=== PATIENT | male | born 2000 | race Caucasian/White ===

== ENCOUNTER 2020-05-27 12:55 | Inpatient (IN) | payer OTHER, SELFPAY ==
[2020-05-27] VITALS (15 sets, daily range): BP systolic 109–129; BP diastolic 52–74; PULSE 115–136; RESP 17–124; TEMP 37.2–37.6; O2SAT 87–98; BMI 26.2; BMI 25.0
--- NOTE | 2020-05-27 | ECG_ITS ---
Test Reason : establish baseline for sinus tachycardia Blood Pressure : / mmHG Vent. Rate : 116 BPM Atrial Rate : 116 BPM P-R Int : 136 ms QRS Dur : 070 ms QT Int : 282 ms P-R-T Axes : 073 -77 013 degrees QTc Int : 391 ms Sinus tachycardia Low voltage QRS Left axis deviation Abnormal ECG When compared with ECG of 28-FEB-2020 17:15, Heart rate has increased Referred By: Geovanny De Oliveira Electronically Signed By:SYL ESCALERA MD
--- NOTE | 2020-05-27 13:10 | XR_ITS ---
EXAMINATION: XR CHEST CLINICAL INFORMATION: Shortness of breath COMPARISON: 04/06/2020 TECHNIQUE: Portable AP upright view of the chest was obtained. FINDINGS: Cardiac and mediastinal silhouettes are normal in appearance. The lungs are clear without consolidation or atelectasis seen. No acute osseous abnormality. XR/XR chest 1V IMPRESSION: The lungs are clear.
--- NOTE | 2020-05-27 13:13 | ED_ITS ---
HPI - SOB/Dyspnea General Chief Complaint: Dyspnea Stated Complaint: SHORTNESS OF BREATH Time Seen by Provider: 05/27/20 13:10 Source: patient and EMS Mode of arrival: EMS Limitations: no limitations History of Present Illness HPI Narrative: 19-year-old male with history of asthma presented with acute asthma exacerbation, patient stated that it is his typical symptoms of wheezing, difficulty breathing, productive cough. Patient has been taking his home medication but with worsening of his asthma, patient called 911 and brought him to the hospital patient was given magnesium /Solu-Medrol/ 2.5 of albuterol in route with slight improvement, in the emergency department patient seen with dyspnea, tachypnea, hypoxic on room air 87% improved with 3 L of oxygen went to 93%. MD elicited complaint: shortness of breath and cough Pertinent past history: asthma Onset (ago): day(s) (1) Timing: constant Severity: moderate Exacerbating factors: nothing Relieving factors: nothing Known history of: asthma Associated symptoms: denies other symptoms Treatment prior to arrival: oxygen and bronchodilator Related Data Home Medications Medication Instructions Recorded Confirmed Ventolin HFA 90 mcg INHALATION QID PRN 05/27/20 05/27/20 albuterol 8.5 mcg INHALATION Q4-5H PRN 05/27/20 05/27/20 Allergies Allergy/AdvReac Type Severity Reaction Status Date / Time No Known Allergies Allergy Unverified 04/12/20 19:52 [No Known Allergies*] Review of Systems Review of Systems: All other systems are reviewed and are negative Constitutional: Reports as per HPI and Reports no additional constitutional complaints Eyes: Reports as per HPI and Reports no additional eye complaints Reports system reviewed and no additional complaints, except as documented Cardiovascular: Reports as per HPI and Reports no additional cardiovascular complaints Respiratory: Reports as per HPI and Reports no additional respiratory complaints Gastrointestinal: Reports as per HPI and Reports no additional gastrointestinal complaints Genitourinary: Reports no additional female genitourinary complaints Musculoskeletal: Reports no additional musculoskeletal complaints Skin/Breast: Reports system reviewed and no additional complaints, except as docu Psychiatric: Reports no additional psychiatric complaints Endocrine: Reports no additional endocrine complaints Hematologic/Lymphatic: Reports no additional hematologic/lymphatic complaints Allergic/Immunologic: Reports no additional allergic/immunologic complaints Reports system reviewed and no additional complaints, except as documented and Reports Abnormal speech present [facility] Past Medical History Medical History Asthma Social History Social History Alcohol intake: never Smoking Status: Never smoker Use of substances other than those prescribed or required for medical reasons: No Advance Directives: No Advance Directives Information Provided: No Physical Exam Vital Signs: Vital Signs: Vital Signs Temp Pulse Resp BP Pulse Ox 05/27/20 14:07 99.3 F 129 H 22 H 116/67 93 05/27/20 13:02 99.1 F 115 H 24 H 120/74 87 L Body Mass Index 25.0 vital signs have been reviewed as normal and appeared to be correct. Blood pressure normal. Tachycardic ( patient received albuterol in route ), tachypneic. Temperature normal. Oxygen saturation is low. Appearance: Alert. Oriented X3. No acute distress. Head: Normal external exam. Normocephalic. Atraumatic. No Patiño signs noted. No raccoon eyes noted Eyes: PERRLA. EOMI. Conjunctiva and sclera normal. Eyelids normal. ENT: EAC normal. TM's Normal. Pharynx normal. Uvula midline. Moist mucous membranes. No trismus noted. No drooling noted. No muffled voice noted. Neck: Normal inspection. Neck supple. FROM. No adenopathy. Thyroid Normal. No meningeal signs. No neck mass noted. CVS: Normal heart rate and rhythm. Heart sound normal. No murmurs noted. Pulses normal throughout. Respiratory: mild respiratory distress, prolonged expiration. , expiratory wheezing. Painless inspiration. Breath sounds are diminished bilaterally. No rales/rhonchi noted. Chest nontender. No accessory muscle usage noted or decreased air movement noted. Abdomen: Soft and nontender. Bowel sounds normal in all 4 quadrants. No distention noted. No organomegaly noted. No visible injury noted. Back: No CVA tenderness. Full range of motion noted. Skin: Skin warm and dry. Normal skin color. Normal skin turgor. No rashes/lesions/lacerations noted. Extremities: No lower extremity edema. Extremities exhibit normal range of motion. Extremities nontender. Neuro: Oriented X 3. No motor deficit. No sensory deficit. Reflexes normal. Course Course Course Narrative: 19-year-old male with history of asthma presents with acute asthma exacerbation patient received multiple medication by EMS with partial improvement. Patient had a history of hospitalization several times for asthma exacerbation will consider repeat Solu-Medrol / magnesium / continuous bronchodilator treatment /will reassess /Check for pneumonia / check for COVID testing. Reevaluation(s) Reevaluation #1: patient is showing some improvement, still expiratory wheezing with prolonged expiration, satting 93% on 3 L of oxygen. Will consider more bronchodilator and reassess. Time: 14:02 Reevaluation #2: Patient still working breathing, mild respiratory distress, satting 92% with 3 L of oxygen still tachypneic and tachycardic. Will consider epinephrine subcu at this point and will consult ICU admission. Time: 14:59 Reevaluation #3: epinephrine was just given exam still unchanged may be minimal subjective improvement, await for ICU consultation will keep re-evaluating. Time: 15:31 MDM - SOB/Dyspnea MDM Narrative Medical decision making narrative: Assessment and plan. 19-year-old male with history of asthma presented with status asthmaticus (not responding to multiple doses of bronchodilator / magnesium / Solu-Medrol ) chest x-ray is not suggesting pneumonia or need of antibiotic, patient received 1 dose of epinephrine in the emergency department. Will admit to ICU for close airway monitoring. Lab Data Attestation: I reviewed the patient's lab results. Result diagrams: 05/27/20 13:37 05/27/20 13:37 Labs: Lab Results 05/27/20 05/27/20 05/27/20 Range/Units 13:37 13:37 13:37 WBC 12.4 H (4.8-10.8) X10*3/uL RBC 5.74 (4.60-5.80) X10*6/uL Hgb 17.3 (14.0-18.0) g/dl Hct 49.3 (42-52) % MCV 85.9 (80-98) fL MCH 30.1 (27.0-33.0) pg MCHC 35.1 (31.0-36.0) g/dl RDW 12.2 (11.0-16.0) % Plt Count 280 (160-400) X10*3/uL MPV 10.2 (9.4-12.4) fL Immature Gran % (Auto) 0.3 (0.0-0.4) % Neut % (Auto) 70.1 (45-73) % Lymph % (Auto) 12.7 L (20-40) % [place] % (Auto) 7.3 (2-11) % Eos % (Auto) 9.0 H (0-4) % Baso % (Auto) 0.6 (0-2) % Lymph # (Auto) 1.6 (1.2-4.9) X10*3/uL [place] # (Auto) 0.9 (0.1-1.2) X10*3/uL Eos # (Auto) 1.1 H (0.0-0.4) X10*3/uL Baso # (Auto) 0.1 (0.0-0.2) X10*3/uL Abs Immat Gran (auto) 0.04 H (0.00-0.03) X10*3/uL Absolute Neuts (auto) 8.7 H (2.0-8.3) X10*3/uL Absolute Nucleated RBC 0.000 (0.0-0.012) X10*3/uL Nucleated RBC % (auto) 0.0 (0.0-0.2) /100WBC Sodium 137 (135-145) mmol/L Potassium 4.9 (3.3-5.1) mmol/l Chloride 104 (96-108) mmol/L Carbon Dioxide 23 (22-29) mmol/L Anion Gap 15 (12-20) BUN 15 (9-16) mg/dL Creatinine 0.88 (0.5-1.4) mg/dL Estim Creat Clear Calc 117.4 Estimated GFR > 60 Random Glucose 104 (60-115) mg/dL Calcium 9.7 (8.4-10.2) mg/dL Coronavirus (PCR) NEGATIVE (Negative) ABG Data Interpretation: No acute intrathoracic pathology. Critical Care Time Critical Care Time Total Critical Care Time: 60 Attestation: I spent 60 minutes providing critical care level to the patient including direct care at the bedside, reassessing the patient, discussing the case with japanese tutor. Discharge Plan Discharge Clinical Impression: Asthmaticus, status Patient Disposition: Admitted As Inpatient Prescriptions: No Action Ventolin HFA 90 mcg inhalation QID PRN (Reason: Wheezing) RF: 0 albuterol 8.5 mcg inhalation Q4-5H PRN (Reason: Wheezing) RF: 0
--- NOTE | 2020-05-27 13:15 | PC.NURSE ---
lungs throughout - tight. o2 increased to 2l/m via n/c. 02 sat at 92% md aware.
[2020-05-27] MEDS: Magnesium Sulfate/H2O 2 GM/50 ML PIGGYBACK IV (13:24)
[2020-05-27] MEDS: Albuterol/Iprat 2.5/0.5MG 3 ML AMPUL.NEB INHALE ×3 (13:38→19:50)
[2020-05-27] MEDS: Albuterol Sulfate (0.083%) 2.5 MG/3 ML VIAL.NEB INHALE ×2 (13:39→14:27)
[2020-05-27 13:55] LABS: MANUAL DIFF FLAG NO
[2020-05-27 13:56] LABS: Basophils Absolute Auto 0.1 X10*3/uL (0.0-0.2); Basophils Percent Auto 0.6 % (0-2); Eosinophils Absolute Auto 1.1 X10*3/uL (0.0-0.4); Hematocrit 49.3 % (42-52); Hemoglobin 17.3 g/dl (14.0-18.0); Imm Gran Abs Auto 0.04 X10*3/uL (0.00-0.03); Imm Gran Pct Auto 0.3 % (0.0-0.4); Lymphocytes Absolute Auto 1.6 X10*3/uL (1.2-4.9); Lymphocytes Percent Auto 12.7 % (20-40); Mean Corpuscular HGB Conc 35.1 g/dl (31.0-36.0); Mean Corpuscular Hemoglobin 30.1 pg (27.0-33.0); Mean Corpuscular Volume 85.9 fL (80-98); Mean Platelet Volume 10.2 fL (9.4-12.4); Monocytes Absolute Auto 0.9 X10*3/uL (0.1-1.2); Monocytes Percent Auto 7.3 % (2-11); Neutrophils Absolute Auto 8.7 X10*3/uL (2.0-8.3); Neutrophils Percent Auto 70.1 % (45-73); Platelet Count 280 X10*3/uL (160-400); Red Blood Count 5.74 X10*6/uL (4.60-5.80); Red Cell Distribution Width 12.2 % (11.0-16.0); White Blood Count 12.4 X10*3/uL (4.8-10.8)
[2020-05-27 14:18] LABS: Anion Gap 15 (12-20); Blood Urea Nitrogen 15 mg/dL (9-16); Calcium 9.7 mg/dL (8.4-10.2); Carbon Dioxide 23 mmol/L (22-29); Chloride 104 mmol/L (96-108); Creatinine Clr Calc Pharmacy 117.4; Estimated Glomerular Filt Rate > 60; Glucose Random 104 mg/dL (60-115); Potassium 4.9 mmol/l (3.3-5.1); Sodium 137 mmol/L (135-145)
[2020-05-27 15:04] LABS: SARS COV2 PCR INHOUSE NEGATIVE (Negative)
[2020-05-27] MEDS: EPINEPHrine 1 MG/ML VIAL 0.3 MG SUBCUT (15:27)
--- NOTE | 2020-05-27 15:41 | PC.NURSE ---
Dr Vasquez in to reassess pt. Plan is to consult with controls operator molded goods.
[2020-05-27 15:43] LABS: ABG PCO2 37 mmhg (32-45); Base Excess ABG -4.8; HCO3 ABG 20 mmol/l (22-26); Oxygen Saturation ABG 88.5 %; PO2 ABG 55 mmhg (83-108); pH ABG 7.35 (7.35-7.45)
[2020-05-27 15:44] LABS: Blood Gas Serial # 5414
--- NOTE | 2020-05-27 16:28 | PM.CCHP ---
History of Present Illness Date of Service: 05/27/20 Chief Complaint: dyspnea 19-year-old with no outpatient medical follow-up and no past or current history other than asthma that he is aware of who became increasingly dyspneic over several days this now being his 3rd monthly visit since February to the emergency room with asthma exacerbation and only takes his inhalers as a sole medication no associated fever he has got a cough but nonproductive never told of a cardiac history benzos no associated chest discomfort thus far arterial blood gas shows a pCO2 of 37 so he is compensating any subjectively better since the subcutaneous epinephrine but he still has on and a nasal cannula and oxygen saturation of 88% still somewhat tachypneic with significant diaphragmatic effort and I did a bedside echo which demonstrates perfectly normal cardiac anatomy and function chest x-ray is comparable to the previous 2 months and is perfectly clear but hyperinflated consistent with his airway disease he admits to and multiple inhalant allergies to everything from dust to mites due to various pollens etc. And has never been tried on Singulair as far as he remembers nor any inhaled steroid just simply his albuterol Review of Systems Review of Systems: 10 point review of systems entirely negative [facility] Past Medical History Medical History Asthma Cognitive capacity: excellent Functional capacity: independent ambulation Family History Pertinent family history: no contributing family historical issues Social History Social History Alcohol intake: never Smoking Status: Never smoker Use of substances other than those prescribed or required for medical reasons: No Advance Directives: No Advance Directives Information Provided: No Travel History Ebola Risk: Travel/Contact With Anyone From Affected Area/s: No Has Patient Experienced Ebola Symptoms: No [place] Travel Destination/s Comment: no travel history Recent Out of Country Travel Within the Last 8 Weeks: No Exposure or Possible Exposure to Illness During Travel: No History of Being in a Healthcare Facility as a Patient, Worker, or Visitor during Travel: No Medical Treatment Received for Symptoms/Illness Related to Travel: No Meds Allergies Allergy/AdvReac Type Severity Reaction Status Date / Time No Known Allergies Allergy Unverified 04/12/20 19:52 [No Known Allergies*] Home Medications Medication Instructions Recorded Confirmed Type Ventolin HFA 90 mcg INHALATION QID PRN 05/27/20 05/27/20 History albuterol 8.5 mcg INHALATION Q4-5H PRN 05/27/20 05/27/20 History Physical Exam Vital Signs: Vital Signs: Vital Signs Temp Pulse Resp BP Pulse Ox 05/27/20 14:07 99.3 F 129 H 22 H 116/67 93 05/27/20 13:02 99.1 F 115 H 24 H 120/74 87 L Body Mass Index 25.0 awake and alert with good cognitive function nonfocal neurological skin is intact with no livedo and no acrocyanosis cardiac exam with good bilateral carotid upstrokes and no bruits and no neck vein distension and normal S1 and S2 without gallops or murmurs chest with very active bilateral wheezing and poor breath excursion and significant diaphragmatic effort abdomen benign no bruits no tenderness no organomegaly no peripheral edema and he has excellent peripheral pulses Results Labs Labs: Laboratory Tests 05/27/20 05/27/20 05/27/20 13:37 13:37 13:37 WBC 12.4 H RBC 5.74 Hgb 17.3 Hct 49.3 MCV 85.9 MCH 30.1 MCHC 35.1 RDW 12.2 Plt Count 280 MPV 10.2 Immature Gran % (Auto) 0.3 Neut % (Auto) 70.1 Lymph % (Auto) 12.7 L [place] % (Auto) 7.3 Eos % (Auto) 9.0 H Baso % (Auto) 0.6 Lymph # (Auto) 1.6 [place] # (Auto) 0.9 Eos # (Auto) 1.1 H Baso # (Auto) 0.1 Abs Immat Gran (auto) 0.04 H Absolute Neuts (auto) 8.7 H Absolute Nucleated RBC 0.000 Nucleated RBC % (auto) 0.0 ABG pH ABG pCO2 ABG pO2 ABG HCO3 ABG O2 Saturation ABG Base Excess Oxygen Given Sodium 137 Potassium 4.9 Chloride 104 Carbon Dioxide 23 Anion Gap 15 BUN 15 Creatinine 0.88 Estim Creat Clear Calc 117.4 Estimated GFR > 60 Random Glucose 104 Calcium 9.7 Coronavirus (PCR) NEGATIVE 05/27/20 15:31 WBC RBC Hgb Hct MCV MCH MCHC RDW Plt Count MPV Immature Gran % (Auto) Neut % (Auto) Lymph % (Auto) [place] % (Auto) Eos % (Auto) Baso % (Auto) Lymph # (Auto) [place] # (Auto) Eos # (Auto) Baso # (Auto) Abs Immat Gran (auto) Absolute Neuts (auto) Absolute Nucleated RBC Nucleated RBC % (auto) ABG pH 7.35 ABG pCO2 37 ABG pO2 55 L ABG HCO3 20 L ABG O2 Saturation 88.5 ABG Base Excess -4.8 Oxygen Given . Sodium Potassium Chloride Carbon Dioxide Anion Gap BUN Creatinine Estim Creat Clear Calc Estimated GFR Random Glucose Calcium Coronavirus (PCR) Assessment and Plan (1) Asthmaticus, status: Qualifiers: Asthma persistence: persistent Asthma severity: severe Qualified Code(s): J45.52 - Severe persistent asthma with status asthmaticus Status: Acute (2) Acute respiratory failure with hypoxia: Status: Acute we will continue [id number] nebulized bronchodilator therapy and IV steroids and adding oral Singulair because of the inhalant allergy but he definitely needs the support of BiPAP if he tolerates and I will cover him for possible atypical infected and causing him asthmatic bronchitis and will use Levaquin for that purpose
[2020-05-27] MEDS: guaiFEN/Codeine SF 200/20/10ML 10 ML LIQUID PO (16:53)
--- NOTE | 2020-05-27 17:14 | PC.NURSE ---
Report given to RN in the ICU.
[2020-05-27 17:27] LABS: Magnesium 2.3 mg/dL (1.6-2.6)
[2020-05-27] MEDS: Dextrose 5 % and 0.45 % NaCl 1,000 ML 100 ML IVCONT (17:48)
[2020-05-27] MEDS: dexAMETHasone sod phosphate 4 MG/ML VIAL IVPUSH (17:58)
[2020-05-27] MEDS: levoFLOXacin/D5W 750 MG/150 ML PIGGYBACK 100 MG IV (17:58)
[2020-05-27] MEDS: Montelukast Sodium 10 MG TABLET PO (17:58)
--- NOTE | 2020-05-27 19:36 | PC.NURSE ---
Addendum entered by Crys Linn RN 05/27/20 21:33: PT PLACED ON HI MITCHEL AT 2130 BY RT. 40L, 45%. PT RECEIVING HOUR LONG TREATMENT. RR 20-24. 02 90-93%. HEART RATE 120'S. PT STATES HI MITCHEL IS MORE TOLERABLE THEN THE BIPAP . Addendum entered by Crys Linn RN 05/27/20 21:26: PT RESTLESS & ANXIOUS. HEART RATE 130-140'S. ATIVAN 0.5MG IV ADMINISTERED WITH NO EFFECT. SECOND DOSE OF ATIVAN 0.5MG IV ADMINISTERED, NO EFFECT. 25 MCG FENTANYL IV ADMINISTERED AT 2130 FOR ANXIETY, INCREASED RR, INCREASED WOB. EFFECTS PENDING. PT NOT TOLERATING BIPAP; CONTINUES TO TAKE MASK OFF. HOISTING PILE DRIVING ENGINEER EDUCATED PATIENT ABOUT IMPORTANCE OF KEEPING BIPAP FACE MASK ON. Original Note: PT ARRIVED TO THE UNIT AT 1745 VIA STRETCHER FROM ED. PT ARRIVED ON BIPAP 12/ 50%. SATS IN THE MID TO HIGH 90'S. RR 25-28. LUNGS NOTED TO HAVE INSP/EXP WHEEZING THROUGHOUT, TIGHT. PT HAD #20 TO RIGHT AC FROM ER. #18 PLACED TO LEFT AC IN ICU. EKG OBTAINED, MD AWARE OF RESULTS. NO NEW ORDERS. PT SINUS TACH IN THE 110'S-120'S. AFEBRILE. RR 20-28. PT CONTINUES ON BIPAP BUT WILL ASK TO TAKE BREAKS OFF OF IT. PT PLACED ON 4L NC WHEN OFF BIPAP. + BS X4Q. PT HAS NOT VOIDED YET THIS SHIFT. URINAL AT BEDSIDE. NO SKIN ISSUES NOTED. PT STARTED ON D5 1/2 NS AT 100ML/HR. WILL CONTINUE TO MONITOR.
[2020-05-27] MEDS: LORazepam 2 MG/ML VIAL 0.5 MG IVPUSH ×2 (20:24→20:47)
[2020-05-27] MEDS: fentaNYL citrate/PF 100 MCG/2 ML VIAL 25 MCG IVPUSH (21:32)
[2020-05-27] MEDS: Albuterol Sulfate (0.083%) 2.5 MG/3 ML VIAL.NEB 10 MG INHALE (21:38)
[2020-05-27] MEDS: 0.9 % Sodium Chloride Flush 3 ML SYRINGE IVFLUSH (23:33)
--- NOTE | 2020-05-27 23:33 | MHC.PIE ---
Addendum entered by Weston Niño RN 05/28/20 09:24: Patient on CPAP most of time, intermit back to high flow. While on CPAP patient HR down to 110's to 120's and RR down. Original Note: P: Patient RR up to mid 40's while sleeping on high flow O2 - 40 liters 45%. I: ABG ordered and done - patient then put on CPAP 10, 50% by RT Bernal. DATA PROGRAMMER at bedside - Karli Ewing I: O2 up to 99% from 95%, dropped O2 to 35%. E: patient tolerating CPAP at this time, HR 130's ST. RR 20 at this time.
[2020-05-27 23:36] LABS: Pt Ventilation O2% 45%
[2020-05-27 23:39] LABS: ABG PCO2 35 mmhg (32-45); Base Excess ABG -3.7; HCO3 ABG 21 mmol/l (22-26); Oxygen Saturation ABG 96.3 %; PO2 ABG 82 mmhg (83-108); pH ABG 7.38 (7.35-7.45)
[2020-05-28] VITALS (22 sets, daily range): BP systolic 94–118; BP diastolic 48–69; PULSE 94–132; RESP 16–39; TEMP 36.6–37.3; O2SAT 91–98
[2020-05-28] MEDS: Dextrose 5 % and 0.45 % NaCl 1,000 ML 100 ML IVCONT (03:05)
[2020-05-28] MEDS: Albuterol/Iprat 2.5/0.5MG 3 ML AMPUL.NEB INHALE ×5 (04:14→19:38)
[2020-05-28 05:51] LABS: MANUAL DIFF FLAG NO
[2020-05-28 05:53] LABS: Basophils Percent Auto 0.1 % (0-2); Hematocrit 42.1 % (42-52); Hemoglobin 14.6 g/dl (14.0-18.0); Imm Gran Abs Auto 0.07 X10*3/uL (0.00-0.03); Imm Gran Pct Auto 0.5 % (0.0-0.4); Mean Corpuscular HGB Conc 34.7 g/dl (31.0-36.0); Mean Corpuscular Volume 86.6 fL (80-98); Mean Platelet Volume 10.3 fL (9.4-12.4); Monocytes Absolute Auto 1.1 X10*3/uL (0.1-1.2); Monocytes Percent Auto 7.3 % (2-11); Neutrophils Absolute Auto 12.7 X10*3/uL (2.0-8.3); Neutrophils Percent Auto 85.1 % (45-73); Platelet Count 266 X10*3/uL (160-400); Red Blood Count 4.86 X10*6/uL (4.60-5.80); Red Cell Distribution Width 12.1 % (11.0-16.0); White Blood Count 14.9 X10*3/uL (4.8-10.8)
[2020-05-28 05:58] LABS: Base Excess VBG -1.3 mmol/L; HCO3 VBG 22 mmol/L; Oxygen Saturation VBG 94.6 %; PCO2 VBG 31 mmhg; PO2 VBG 66 mmhg; pH VBG 7.46 (7.32-7.43)
[2020-05-28 06:14] LABS: Alanine Aminotransferase 12 U/L (0-40); Albumin Level 4.3 g/dL (3.5-5.0); Alkaline Phosphatase 82 U/L (39-117); Anion Gap 15 (12-20); Aspartate Amino Transferase 20 U/L (5-37); Bilirubin Total 0.4 mg/dL (0.0-1.0); Blood Urea Nitrogen 15 mg/dL (9-16); Calcium 9.1 mg/dL (8.4-10.2); Carbon Dioxide 20 mmol/L (22-29); Chloride 104 mmol/L (96-108); Creatinine Clr Calc Pharmacy 118.7; Estimated Glomerular Filt Rate > 60; Glucose Random 168 mg/dL (60-115); Magnesium 2.2 mg/dL (1.6-2.6); Potassium 5.3 mmol/l (3.3-5.1); Sodium 134 mmol/L (135-145)
[2020-05-28] MEDS: dexAMETHasone sod phosphate 4 MG/ML VIAL IVPUSH (10:08)
[2020-05-28] MEDS: Montelukast Sodium 10 MG TABLET PO (10:09)
[2020-05-28] MEDS: 0.9 % Sodium Chloride Flush 3 ML SYRINGE IVFLUSH ×3 (10:09→23:25)
--- NOTE | 2020-05-28 15:41 | MHC.CM.PN ---
Met with patient in regards to discharge planning. Patient lives with his girlfriend and her family, ambulates independently, and had no services prior to coming to the hospital. Since last discharge, patient has tried to obtain a PCP but states I haven't received any call backs. Patient's girlfriend suggested Destini Mendiola. T/W explained patietnt should call PCP's office, make sure they accept his insurance and provider is accepting new patients, and then to call [facility] to change his PCP. Once [facility] has the appropriate provider listed, the office will be able to arrange an appointment for him. Patient verbalized understanding. No additional services anticipated to be needed because patient is not homebound. Patient has transportation at d/c. Continue to monitor for d/c needs.
[2020-05-28] MEDS: guaiFEN/Codeine SF 200/20/10ML 10 ML LIQUID 5 ML PO (15:45)
--- NOTE | 2020-05-28 16:38 | PM.CCPN ---
Subjective Subjective Date of Service: 05/28/20 Interval History: Mr. Willie Honeycutt was admitted to ICU last night with asthmatic resp failure. 19-year-old with no outpatient medical follow-up and no past or current history other than asthma. Been admitted to the hospital for asthma twice previously. Has never previously been admitted to the ICU, nor had to use CPAP or BiPAP. Became increasingly dyspneic over several days. Presented to the ED yesterday afternoon with his typical symptoms of wheezing, difficulty breathing, and cough. No associated fever. In the ED, had a sat of 87% on room air. He had mild respiratory distress, with diminished breath sounds, expiratory wheezing, and a prolonged expiratory phase. Was given magnesium, Solu-Medrol, and albuterol. On 3 L of oxygen he went up to 93%. Ultimately was given subcutaneous epinephrine. A blood gas showed 7.35/37/55 on unstated FiO2. Chest x-ray showed only hyperinflation. Was not given CPAP or opiates in the ED, resulting in admission to the ICU. Treated with steroids, BDs, Singulair and Levaquin. Overnite was given CPAP. This morning changed to HFNC, and then regular NC 4L. This afternoon he?s breathing easy with RR 18, Sat 93-95% on 4L. See Vital Signs below. Chest is CTA with no wheeze, normal exp phase. He is hyperinflated. Regular rate and rhythm, normal S1 and S2, with no murmur or gallops. Abdomen is benign. No edema. LABORATORY DATA: As below. IMPRESSION: Otherwise healthy 19-year-old with asthma and asthma exacerbation. Needs pulmonary follow-up. I've asked Dr Martinez to see him tomorrow. In the meantime, continue steroids and BDs.. No need for Abx. Opiates to keep RR no higher than low 20s, if necessary. CPAP if necessary. (CPAP is the specific antidote for asthma, is not ?rescue therapy?.) Stable for transfer to [facility] [place]. I will sign out to hospitalists. Time: . Physical Exam Vital Signs: Vital Signs: Vital Signs Temp Pulse Resp BP Pulse Ox 05/28/20 15:00 100 22 H 108/63 92 05/28/20 14:00 117 H 16 106/62 91 L 05/28/20 13:00 118 H 25 H 106/56 L 92 05/28/20 12:00 119 H 29 H 109/55 L 94 05/28/20 11:24 18 05/28/20 11:00 132 H 21 H 107/55 L 97 05/28/20 10:00 127 H 26 H 94/54 L 95 05/28/20 08:56 123 H 18 102/67 93 05/28/20 08:25 22 H 05/28/20 08:00 116 H 27 H 117/66 93 05/28/20 07:00 96 24 H 110/65 98 05/28/20 06:00 112 H 28 H 95/48 L 94 05/28/20 05:00 94 26 H 101/57 L 95 05/28/20 04:31 24 H 05/28/20 04:00 98.5 F 105 H 39 H 114/51 L 95 05/28/20 03:00 117 H 31 H 113/66 94 05/28/20 02:00 132 H 23 H 115/62 98 05/28/20 01:00 128 H 26 H 109/59 L 95 05/27/20 23:46 128 H 22 H 124/52 L 96 05/27/20 23:38 21 H 05/27/20 23:31 99 F 132 H 23 H 95 05/27/20 22:57 136 H 27 H 129/59 L 95 05/27/20 22:00 135 H 21 H 129/59 L 96 05/27/20 21:41 26 H 05/27/20 21:00 126 H 25 H 114/73 93 05/27/20 19:49 119 H 26 H 125/63 93 05/27/20 19:00 123 H 25 H 125/63 91 L 05/27/20 18:00 99.6 F 118 H 22 H 128/53 L 95 05/27/20 16:39 17 Body Mass Index 25.0 Objective Data Labs CBC & Chem 7: 05/28/20 05:34 05/28/20 05:34 Labs: Laboratory Results - last 24 hr 05/27/20 05/27/20 05/28/20 16:58 23:29 05:34 WBC RBC Hgb Hct MCV MCH MCHC RDW Plt Count MPV Immature Gran % (Auto) Neut % (Auto) Lymph % (Auto) [place] % (Auto) Eos % (Auto) Baso % (Auto) Lymph # (Auto) [place] # (Auto) Eos # (Auto) Baso # (Auto) Abs Immat Gran (auto) Absolute Neuts (auto) Absolute Nucleated RBC Nucleated RBC % (auto) ABG pH 7.38 ABG pCO2 35 ABG pO2 82 L ABG HCO3 21 L ABG O2 Saturation 96.3 ABG Base Excess -3.7 VBG pH 7.46 H VBG pCO2 31 VBG Oxygen Liters/Min Not Reportable VBG pO2 66 VBG HCO3 22 VBG O2 Saturation 94.6 VBG Base Excess -1.3 Oxygen Given 45% Sodium Potassium Chloride Carbon Dioxide Anion Gap BUN Creatinine Estim Creat Clear Calc Estimated GFR Random Glucose Calcium Phosphorus Magnesium 2.3 Total Bilirubin AST ALT Alkaline Phosphatase Total Protein Albumin 05/28/20 05/28/20 05:34 05:34 WBC 14.9 H RBC 4.86 Hgb 14.6 Hct 42.1 MCV 86.6 MCH 30.0 MCHC 34.7 RDW 12.1 Plt Count 266 MPV 10.3 Immature Gran % (Auto) 0.5 H Neut % (Auto) 85.1 H Lymph % (Auto) 7.0 L [place] % (Auto) 7.3 Eos % (Auto) 0.0 Baso % (Auto) 0.1 Lymph # (Auto) 1.0 L [place] # (Auto) 1.1 Eos # (Auto) 0.0 Baso # (Auto) 0.0 Abs Immat Gran (auto) 0.07 H Absolute Neuts (auto) 12.7 H Absolute Nucleated RBC 0.000 Nucleated RBC % (auto) 0.0 ABG pH ABG pCO2 ABG pO2 ABG HCO3 ABG O2 Saturation ABG Base Excess VBG pH VBG pCO2 VBG Oxygen Liters/Min VBG pO2 VBG HCO3 VBG O2 Saturation VBG Base Excess Oxygen Given Sodium 134 L Potassium 5.3 H Chloride 104 Carbon Dioxide 20 L Anion Gap 15 BUN 15 Creatinine 0.87 Estim Creat Clear Calc 118.7 Estimated GFR > 60 Random Glucose 168 H D Calcium 9.1 Phosphorus 4.0 Magnesium 2.2 Total Bilirubin 0.4 AST 20 ALT 12 Alkaline Phosphatase 82 Total Protein 7.0 Albumin 4.3 Progress Note: A&P Time Spent With Patient Time: Total time spent is greater than 50% in coordination of care (as documented) at patient's floor/unit and/or counseling patient: Total time spent with greater than 50% in coordination of care (as documented) at patient's floor/unit and/or counseling patient:: 0
[2020-05-28 19:01] LABS: Adenovirus PCR Not Detected (Not Detect.); Bordetella parapertussis PCR Not Detected (Not Detect.); Bordetella pertussis PCR Not Detected (Not Detect.); Chlamydia pneumoniae PCR Not Detected (Not Detect.); Coronavirus 229E PCR Not Detected (Not Detect.); Coronavirus HKU1 PCR Not Detected (Not Detect.); Coronavirus NL63 PCR Not Detected (Not Detect.); Coronavirus OC43 PCR Not Detected (Not Detect.); Human metapneumovirus PCR Not Detected (Not Detect.); Influenza A PCR Not Detected (Not Detect.); Influenza B PCR Not Detected (Not Detect.); Mycoplasma pneumoniae PCR Not Detected (Not Detect.); Parainfluenza 1 PCR Not Detected (Not Detect.); Parainfluenza 2 PCR Not Detected (Not Detect.); Parainfluenza 3 PCR Not Detected (Not Detect.); Parainfluenza 4 PCR Not Detected (Not Detect.); RSV PCR Not Detected (Not Detect.); Rhino/Enterovirus PCR Not Detected (Not Detect.); SARS-CoV-2 PCR Not Detected (Not Detect.)
[2020-05-28] MEDS: Throat Lozenge, Medicated LOZENGE 1 LOZENGE MUCOUS MEM (21:20)
[2020-05-29] MEDS: Albuterol/Iprat 2.5/0.5MG 3 ML AMPUL.NEB INHALE (00:03)
[2020-05-29 03:25] VITALS: BP 128/45; PULSE 119; RESP 20; TEMP 36.6; O2SAT 96
[2020-05-29 08:00] VITALS: BP 128/69; PULSE 80; RESP 18; TEMP 37.1; O2SAT 93
[2020-05-29] MEDS: Montelukast Sodium 10 MG TABLET PO (08:48)
[2020-05-29] MEDS: Sodium Polystyrene Sulfon/Sorb 15 GM/60 ML ORAL.SUSP 30 GM PO (08:48)
[2020-05-29] MEDS: 0.9 % Sodium Chloride Flush 3 ML SYRINGE IVFLUSH ×3 (08:49→19:38)
[2020-05-29] MEDS: levalbuterol HCL 1.25 MG/3 ML VIAL.NEB INHALE (10:08)
--- NOTE | 2020-05-29 10:30 | P.CONPL_ITS ---
History of Present Illness History of Present Illness Chief complaint: Status Asthmaticus w/acute hypoxic resp failure Narrative: The patient is a 19-year-old gentleman with known history of asthma. Apparently the patient had moved from [place] to [place] in the last several months. He has been developing worsening respiratory symptoms and significant wheezing. He was evaluated at the hospital back in February and required admission for acute respiratory failure and asthma exacerbation. Subsequently again his symptoms reoccurred and was readmitted to the hospital in March 2020 for brief hospitalization. Her reason the patient started developing worsening shortness of breath and wheezing again. He was found to be significantly in distress in the ED. therefore IC was hard for her. ABG was bush ggestive of hyperventilation. He was also placed on high-flow. Currently he is on the floor on 4 L. the patient continues to have shortness of breath and wheezing. He has coughing spells and needs bringing up some phlegm. His blood work does demonstrate some degree of neutrophilia. Appears to have significant mucus plugging. His respiratory viral panel was negative for the full panel. Review of Systems Constitutional: Constitutional: Denies night sweats ENT: Denies change in voice, Denies lip swelling, Denies mouth pain, Reports nasal congestion, Reports nasal discharge and Denies tongue swelling Cardiovascular: Cardiovascular: Denies chest pain and Reports dyspnea Respiratory: Respiratory: Reports cough, Denies hemoptysis, Reports dyspnea and Reports wheezing Gastrointestinal: Gastrointestinal: Denies abdominal pain Musculoskeletal: Musculoskeletal: Denies no additional musculoskeletal complaints Neurologic: Denies Neuro-related abnormal movements Psychiatric: Psychiatric: Denies no additional psychiatric complaints Hematologic/Lymphatic: Hematologic/Lymphatic: Denies easy bleeding and Denies lymphadenopathy Allergic/Immunologic: Allergic/Immunologic: Denies lip swelling, Denies tongue swelling and Reports wheezing [facility] Past Medical History Medical History Asthma Functional capacity: independent ambulation Social History Social History Alcohol intake: never Smoking Status: Never smoker Use of substances other than those prescribed or required for medical reasons: No Currently Displaying Signs/Symptoms of Drug Intoxication Withdrawal: No Advance Directives: No Advance Directives Information Provided: No Do you have thoughts of harming others: None Do you have a plan to hurt others: No Plan service: Yes Current occupational status: employed Travel History Ebola Risk: Travel/Contact With Anyone From Affected Area/s: No Has Patient Experienced Ebola Symptoms: No Meds Allergies Allergy/AdvReac Type Severity Reaction Status Date / Time No Known Allergies Allergy Unverified 04/12/20 19:52 [No Known Allergies*] Home Medications Medication Instructions Recorded Confirmed Type Ventolin HFA 90 mcg INHALATION QID PRN 05/27/20 05/27/20 History albuterol 8.5 mcg INHALATION Q4-5H PRN 05/27/20 05/27/20 History Physical Exam Vital Signs: Vital Signs: Vital Signs Temp Pulse Resp BP Pulse Ox 05/29/20 08:00 98.7 F 80 18 128/69 93 05/29/20 03:25 97.9 F 119 H 20 128/45 L 96 05/28/20 23:38 98.3 F 107 H 18 118/60 94 05/28/20 19:24 98 F 102 H 16 110/61 96 05/28/20 18:00 99.1 F 117 H 24 H 116/69 95 05/28/20 16:00 104 H 22 H 111/68 93 05/28/20 15:00 100 22 H 108/63 92 05/28/20 14:00 122 H 20 106/62 91 L 05/28/20 13:00 118 H 25 H 106/56 L 92 05/28/20 12:00 127 H 20 109/55 L 95 05/28/20 11:24 18 05/28/20 11:00 132 H 21 H 107/55 L 97 Body Mass Index 25.0 Const: General: alert HENMT: General nose exam: Abnormal external nose present and Nasal discharge present Eyes: Pupils: Equal, round and reactive pupils present Neck: Neck: Yes normal visual inspection, Yes full ROM and Yes no lymphadenopathy Chest: Chest palpation & inspection: normal inspection of the chest Resp: Auscultation: wheezes expiratory wheezes, inspiratory wheezes and throughout and diminished lung sounds Cardio: Rate: regular rate Rhythm: regular rhythm Heart sounds: S1 no rmal heart sound present and S2 normal heart sound present GI: Palpation (GI): Soft to palpation and nontender Auscultation: normal bowel sounds : General: Yes no CVA tenderness Back/Spine/Pelvis: Back: no CVA tenderness Skin: General skin exam: rashes and/or lesions noted Neuro: Cranial nerves: Yes Equal, round and reactive pupils present Results Laboratory Findings CBC and BMP: 05/28/20 05:34 05/28/20 05:34 ABG, PT/INR, D-dimer: ABG ABG pH 7.38 (7.35-7.45) 05/27/20 23:29 ABG pCO2 35 mmhg (32-45) 05/27/20 23:29 ABG pO2 82 mmhg (83-108) L 05/27/20 23:29 ABG O2 Saturation 96.3 % 05/27/20 23:29 Abnormal lab findings: Abnormal Labs 05/27/20 05/27/20 05/27/20 13:37 15:31 23:29 WBC 12.4 H Immature Gran % (Auto) Neut % (Auto) Lymph % (Auto) 12.7 L Eos % (Auto) 9.0 H Lymph # (Auto) Eos # (Auto) 1.1 H Abs Immat Gran (auto) 0.04 H Absolute Neuts (auto) 8.7 H ABG pO2 55 L 82 L ABG HCO3 20 L 21 L VBG pH Sodium Potassium Carbon Dioxide Random Glucose 05/28/20 05/28/20 05/28/20 05:34 05:34 05:34 WBC 14.9 H Immature Gran % (Auto) 0.5 H Neut % (Auto) 85.1 H Lymph % (Auto) 7.0 L Eos % (Auto) Lymph # (Auto) 1.0 L Eos # (Auto) Abs Immat Gran (auto) 0.07 H Absolute Neuts (auto) 12.7 H ABG pO2 ABG HCO3 VBG pH 7.46 H Sodium 134 L Potassium 5.3 H Carbon Dioxide 20 L Random Glucose 168 H D Assessment and Plan (1) Acute respiratory failure with hypoxia: Status: Acute Titrate oxygen supplementation to maintain a pulse ox above 90% (2) Asthmaticus, status: Qualifiers: Asthma persistence: persistent Asthma severity: severe Qualified Code(s): J45.52 - Severe persistent asthma with status asthmaticus Status: Acute Additional Solu-Medrol 125 mg IV x1 Give magnesium sulfate 2 g IV x1 Continue Xopenex every 4 hours Add Breo 200 Bloodwork pending
[2020-05-29] MEDS: Magnesium Sulfate/H2O 2 GM/50 ML PIGGYBACK IV (11:02)
[2020-05-29] MEDS: guaiFEN/Codeine SF 200/20/10ML 10 ML LIQUID 5 ML PO (11:02)
[2020-05-29] MEDS: methylPREDNISolone Sod Succ/PF 125 MG/2 ML VIAL IVPUSH (11:02)
[2020-05-29 11:41] VITALS: BP 119/59; PULSE 97; RESP 18; TEMP 36.8; O2SAT 94
[2020-05-29 12:12] LABS: Anion Gap 17 (12-20); Blood Urea Nitrogen 25 mg/dL (9-16); Calcium 9.8 mg/dL (8.4-10.2); Carbon Dioxide 25 mmol/L (22-29); Chloride 103 mmol/L (96-108); Creatinine Clr Calc Pharmacy 111.1; Estimated Glomerular Filt Rate > 60; Glucose Random 145 mg/dL (60-115); Potassium 4.7 mmol/l (3.3-5.1); Sodium 140 mmol/L (135-145)
--- NOTE | 2020-05-29 12:38 | HO.PM.IMPN ---
Subjective Subjective Date of Service: 05/29/20 Interval History: Acute respiratory failure with hypoxia due to asthma excerebation Review of Systems Patient still shortness of breath feeling, still psych tight shortness of breath Physical Exam Vital Signs: Vital Signs: Vital Signs Temp Pulse Resp BP Pulse Ox 05/29/20 11:41 98.2 F 97 18 119/59 L 94 05/29/20 08:00 98.7 F 80 18 128/69 93 05/29/20 03:25 97.9 F 119 H 20 128/45 L 96 05/28/20 23:38 98.3 F 107 H 18 118/60 94 05/28/20 19:24 98 F 102 H 16 110/61 96 05/28/20 18:00 99.1 F 117 H 24 H 116/69 95 05/28/20 16:00 104 H 22 H 111/68 93 05/28/20 15:00 100 22 H 108/63 92 05/28/20 14:00 122 H 20 106/62 91 L 05/28/20 13:00 118 H 25 H 106/56 L 92 Body Mass Index 25.0 Physical exam: Constitutional: Patient is having some store short of breath still, but has some cough Cvs: rrr, [id number] , no murmur res: Diminished breath sounds, has wheezing bilaterally abd: no rebound or guarding ,nt, bs present. ext pulses present , no cyanosis neuro: axo3 , nonfocal. Objective Data Current Medications Generic Name Dose Route Start Last Admin Trade Name Freq PRN Reason Stop Dose Admin Acetaminophen 650 mg 05/27/20 16:14 Acetaminophen Supp [address] Q6H PRN Pain, Mild (Pain Scale 1-3) Fluticasone/Vilanterol 1 puff 05/30/20 08:00 Fluticasone/Vilanterol 200/25 Blst.W.Dev INHALE RDAILY MAYELIN Guaifenesin/Codeine Phosphate 5 ml 05/28/20 14:27 05/29/20 11:02 Guaifen/Codeine Sf 200/20/10ml 10 Ml Liquid PO 5 ml Q6H PRN Administration cough Levalbuterol HCl 1.25 mg 05/27/20 16:23 05/29/20 10:08 Levalbuterol Hcl 1.25 Mg/3 Ml Vial.Neb INHALE 1.25 mg RQ4H WHILE AWAKE PRN Administration Dyspnea Methylprednisolone Sodium Succinate 40 mg 05/28/20 19:00 05/29/20 04:05 Methylprednisolone Sod Succ/Pf 40 Mg/Ml Vial IVPUSH 40 mg Q8H MAYELIN Administration Montelukast Sodium 10 mg 05/27/20 16:23 05/29/20 08:48 Montelukast Sodium 10 Mg Tablet PO 10 mg DAILY MAYELIN Administration Sodium Chloride 3 ml 05/28/20 00:00 05/29/20 08:49 0.9 % Sodium Chloride Flush 3 Ml Syringe IVFLUSH 3 ml QSHIFT MAYELIN Administration Labs CBC & Chem 7: 05/30/20 05:46 05/30/20 05:46 Assessment and Plan (1) Acute respiratory failure with hypoxia: Status: Acute (2) Asthmaticus, status: Status: Acute Assessment and Plan: Patient was admitted with acute hypoxemic respiratory failure secondary asthma exacerbation: Patient was started on nebs, steroids, magnesium, also received subcutaneous epinephrine as per ICU documentation-patient still sent from ICU yesterday with slightly shortness of breath improving-in this morning again patient still has short of breath Seen by Pulmonary-continue nebs, steroids, this morning also received initial Solu-Medrol does 125 mg, magnesium sulfate 2 mg, placed on Xopenex and Breo Pulmonary following.
[2020-05-29 12:53] LABS: Erythrocyte Sedimentation Rate 13 MM/HR (0-15)
[2020-05-29 15:29] VITALS: BP 118/78; PULSE 82; RESP 18; TEMP 36.7; O2SAT 94
[2020-05-29 19:13] VITALS: BP 105/60; PULSE 88; RESP 19; TEMP 36.9; O2SAT 93
[2020-05-29 23:34] VITALS: BP 105/66; PULSE 94; RESP 18; TEMP 36.4; O2SAT 96
--- NOTE | 2020-05-30 | XR_ITS ---
EXAMINATION: XR CHEST CLINICAL INFORMATION: Hypoxia COMPARISON: Previous chest x-ray most recent 05/27/2020 TECHNIQUE: 2 views of the chest were obtained. FINDINGS: The cardiac and mediastinal contours are normal. The lungs are well inflated. There are increased markings seen at the right lung base in the right lower lobe questionable for bronchial wall thickening or small bronchopneumonia. The lungs are otherwise clear. There is no pleural effusion or pneumothorax. Bony structures are unremarkable. XR/XR chest 2V IMPRESSION: Well-inflated lungs. Increased markings in the right lower lobe questionable for bronchial wall thickening or small bronchopneumonia.
[2020-05-30 01:33] LABS: Amphetamine Screen Urine Not Detected (Not Detect); Barbiturates, Urine Not Detected (Not Detect); Benzodiazepines Screen Urine Not Detected (Not Detect); Cannabinoid Screen Urine Not Detected (Not Detect); Cocaine Screen Urine Not Detected (Not Detect); Opiate Screen Urine POSITIVE (Not Detect); Phencyclidine Screen Urine Not Detected (Not Detect)
[2020-05-30 03:29] VITALS: BP 101/47; PULSE 80; RESP 18; TEMP 36.6; O2SAT 96
[2020-05-30 07:00] LABS: Hematocrit 42.4 % (42-52); Hemoglobin 14.6 g/dl (14.0-18.0); Mean Corpuscular HGB Conc 34.4 g/dl (31.0-36.0); Mean Corpuscular Hemoglobin 30.2 pg (27.0-33.0); Mean Corpuscular Volume 87.6 fL (80-98); Mean Platelet Volume 10.4 fL (9.4-12.4); Platelet Count 311 X10*3/uL (160-400); Red Blood Count 4.84 X10*6/uL (4.60-5.80); Red Cell Distribution Width 11.9 % (11.0-16.0); White Blood Count 12.9 X10*3/uL (4.8-10.8)
[2020-05-30 07:02] LABS: Anion Gap 15 (12-20); Blood Urea Nitrogen 27 mg/dL (9-16); Calcium 8.8 mg/dL (8.4-10.2); Carbon Dioxide 25 mmol/L (22-29); Chloride 103 mmol/L (96-108); Creatinine Clr Calc Pharmacy 134.2; Estimated Glomerular Filt Rate > 60; Glucose Random 108 mg/dL (60-115); Potassium 4.7 mmol/l (3.3-5.1); Sodium 138 mmol/L (135-145)
[2020-05-30 07:14] VITALS: BP 100/55; PULSE 88; RESP 20; TEMP 36.9; O2SAT 97
[2020-05-30] MEDS: levalbuterol HCL 1.25 MG/3 ML VIAL.NEB INHALE (07:22)
[2020-05-30] MEDS: Fluticasone/Vilanterol 200/25 BLST.W.DEV 1 PUFF INHALE (07:25)
[2020-05-30] MEDS: 0.9 % Sodium Chloride Flush 3 ML SYRINGE IVFLUSH (08:53)
[2020-05-30] MEDS: Montelukast Sodium 10 MG TABLET PO (08:53)
--- NOTE | 2020-05-30 09:44 | PM.EVENT ---
Event Note Event Note: AMA Note Patient seen and examined this morning during rounds. He tells me that he wants to be discharged as he has social obligations at home ( fiance) and he needs to be home. Lengthy discussion held with the patient informing him that he is still requiring 3-4 L of oxygen and desaturating down to 88 on room air. Explained to him the risks of leaving against medical advice which include but are not limited to worsening of his asthma and potentially ultimately respiratory/cardiac arrest. Patient is alert and oriented x3. He understands the risks and accepts them. He signs out AMA despite understanding these risks. Have offered to send him with some prednisone which he reports he will take. He has also been informed to return to the emergency room should he changes mind.
--- NOTE | 2020-05-30 09:49 | P.DS_ITS ---
DS: Providers Provider Date of admission: 05/27/20 16:14 Primary care physician: None Physician DS: Diagnosis Discharge Diagnosis (1) Acute respiratory failure with hypoxia: Status: Acute (2) Asthmaticus, status: Status: Acute DS: Summary Hospital Course Hospital Course: HPI from the admission H&P: 19-year-old with no outpatient medical follow-up and no past or current history other than asthma that he is aware of who became increasingly dyspneic over several days this now being his 3rd monthly visit since February to the emergency room with asthma exacerbation and only takes his inhalers as a sole medication no associated fever he has got a cough but nonproductive never told of a cardiac history benzos no associated chest discomfort thus far arterial blood gas shows a pCO2 of 37 so he is compensating any subjectively better since the subcutaneous epinephrine but he still has on and a nasal cannula and oxygen saturation of 88% still somewhat tachypneic with significant diaphragmatic effort and I did a bedside echo which demonstrates perfectly normal cardiac anatomy and function chest x-ray is comparable to the previous 2 months and is perfectly clear but hyperinflated consistent with his airway disease he admits to and multiple inhalant allergies to everything from dust to mites due to various pollens etc. And has never been tried on Singulair as far as he remembers nor any inhaled steroid just simply his albuterol Hospital Course Patient required high-dose IV steroids and high-flow oxygen and was initially treated in the intensive care unit. he was subsequently transitioned to nasal cannula and transferred out to the floor where he continued his systemic steroids and updraft treatments. He continued to improve but still required 3-4 L of oxygen. However on 05/30/2020, he decided to sign out against medical ad vice despite being educated on the risks of doing so. Will discharge him with 5 more days of prednisone and z-pack. Time Spent with Patient Time attestation: Total time spent providing and/or coordinating discharge services: Physical Exam Vital Signs: Vital Signs: Vital Signs Temp Pulse Resp BP Pulse Ox 05/30/20 07:14 98.4 F 88 20 100/55 L 97 05/30/20 03:29 97.8 F 80 18 101/47 L 96 05/29/20 23:34 97.5 F 94 18 105/66 96 05/29/20 19:13 98.4 F 88 19 105/60 93 05/29/20 15:29 98.0 F 82 18 118/78 94 05/29/20 11:41 98.2 F 97 18 119/59 L 94 Body Mass Index 25.0 DS: Data Data Completed and Pending Labs on day of discharge: Labs from last 24 hours 05/30/20 05/30/20 05/30/20 05:46 05:46 01:07 WBC 12.9 H RBC 4.84 Hgb 14.6 Hct 42.4 MCV 87.6 MCH 30.2 MCHC 34.4 RDW 11.9 Plt Count 311 MPV 10.4 Absolute Nucleated RBC 0.000 Nucleated RBC % (auto) 0.0 ESR Sodium 138 Potassium 4.7 Chloride 103 Carbon Dioxide 25 Anion Gap 15 BUN 27 H Creatinine 0.77 Estim Creat Clear Calc 134.2 Estimated GFR > 60 Random Glucose 108 Calcium 8.8 Urine Opiates Screen POSITIVE H Ur Barbiturates Screen Not Detected Ur Phencyclidine Scrn Not Detected Ur Amphetamines Screen Not Detected U Benzodiazepines Scrn Not Detected Urine Cocaine Screen Not Detected U Marijuana (THC) Screen Not Detected IgG Total IgA Total IgM IgE 05/29/20 05/29/20 05/29/20 11:07 11:07 11:07 WBC RBC Hgb Hct MCV MCH MCHC RDW Plt Count MPV Absolute Nucleated RBC Nucleated RBC % (auto) ESR 13 Sodium 140 Potassium 4.7 Chloride 103 Carbon Dioxide 25 Anion Gap 17 BUN 25 H D Creatinine 0.93 Estim Creat Clear Calc 111.1 Estimated GFR > 60 Random Glucose 145 H Calcium 9.8 Urine Opiates Screen Ur Barbiturates Screen Ur Phencyclidine Scrn Ur Amphetamines Screen U Benzodiazepines Scrn Urine Cocaine Screen U Marijuana (THC) Screen IgG Total Pending IgA Total Pending IgM Pending IgE Pending Discharge Plan Discharge Patient Disposition: Left Against Medical Advice Referrals: Physician,None [Primary Care Provider] - Discharge Medications: New prednisone 50 mg tablet 50 mg PO DAILY Qty: 5 RF: 0 azithromycin [Zithromax] 250 mg tablet See Rx Instructions .ROUTE .COMPLEX Qty: 6 RF: 0 Continued Ventolin HFA 90 mcg inhalation QID PRN (Reason: Wheezing) RF: 0 albuterol 8.5 mcg inhalation Q4-5H PRN (Reason: Wheezing) RF: 0 Discharge Orders: Discharge Order (Routine); Ordered 05/30/20 Ordered By: Kenneth Pleitez Care Plan Goals: You are leaving against medical advince. You are risk serious injury and even to yourself by doing so. If you change your decision, please return to the emergency room. Health Concerns: You are leaving against medical advince. You are risk serious injury and even to yourself by doing so. If you change your decision, please return to the emergency room. Plan of Treatment: You are leaving against medical advince. You are risk serious injury and even to yourself by doing so. If you change your decision, please return to the emergency room.
--- NOTE | 2020-05-30 10:18 | MHC.CM.PN ---
pt dcd home no services
--- NOTE | 2020-05-30 10:19 | MHC.CM.PN ---
pt left ama
--- NOTE | 2020-05-30 10:44 | PC.NURSE ---
Patient leaving [facility]. at bedside to educate patient on risks and consequences of leaving including . Patient alert and oriented. Patient verbally states he understood risks and consequences. IV removed with no complications, monitor technician removed. AMA paper signed by patient. Patient given contact information to follow up with bank guard.
[2020-05-31 03:56] LABS: Immunoglobulin E 260 kU/L (<OR=114)
[2020-05-31 13:36] LABS: IgA 144 mg/dL (47-310); IgG 919 mg/dL (600-1640); IgM 106 mg/dL (50-300)
== END 2020-05-30 10:55 | disposition left against medical advice (07) | DRG 141 ==
LOC: HO.ED 15:39 → HO.ICU 16:40 → HO.IMC 05-28 18:22
PROVIDERS: Anesthesiology; Hospitalist; Internal Medicine; Registered Nurse Community Health; Admitting Provider Internal Medicine Cardiovascular Disease; Emergency Provider Emergency Medicine; Visit Provider Family Medicine
DX: J45.52 Severe persistent asthma with status asthmaticus (principal); J96.01 Acute respiratory failure with hypoxia; Z20.828 Contact with and (suspected) exposure to other viral communicable diseases
CPT/HCPCS: 36415; 36600; 71045; 71046; 80048; 80053; 80307; 82784; 82785; 82803; 83735; 84100; 85025; 85027; 85652; 87633; 93005; 94660; 94664; 96365; 96366; 96372; 96375; 99285; 99291; J0171; J1100; J1956; J2060; J2920; J2930; J3010; J3475; U0003